=== PATIENT | male | born 1940 | race Caucasian/White ===

== ENCOUNTER 2018-08-19 00:11 | Observation (INO) | payer OTHER ==
[2018-08-19] VITALS (11 sets, daily range): BP systolic 155–178; BP diastolic 74–104
[~2018-08-19] VITALS: Ht 182.9 cm; Wt 99.8 kg
[2018-08-19] MEDS ORDERED: METF10007 PO (00:20)
[2018-08-19] MEDS ORDERED: DILT180C64 PO (00:20)
[2018-08-19] MEDS ORDERED: PANT40TA5 PO (00:20)
[2018-08-19] MEDS ORDERED: GABA600T2 PO (00:20)
--- NOTE | 2018-08-19 00:28 | ER.PDOC ---
General Chief Complaint: Stroke Symptoms Stated Complaint: LEFT ARM, LEFT LEG WEAKNESS Time seen by MD: 00:20 Source: patient, EMS Exam Limitations: no limitations History of Present Illness Initial Comments Pt states that about 10:30 last night, he was reading and while trying to hold an object, he noticed that his left upper extremity was not responding, then he tried to get up and his leg did not respond either Timing/Duration: 1-3 hours Severity: moderate New Weakness: LUE, LLE Decreased Ability to Stand: weak Usually: orientedx3 Allergies: Coded Allergies: No Known Allergies (Unverified , 08/19/18) Home Meds Reported Medications Diltiazem Hcl (CARTIA XT) 180 Mg Cap.er.24h, 180 MG PO BID 08/19/18 Pantoprazole Sodium (PANTOPRAZOLE SODIUM) 40 Mg Tablet.dr, 1 TAB PO BID, #30 TAB 3 Refills 08/19/18 Gabapentin (GABAPENTIN) 600 Mg Tablet, 1 TAB PO TID, #90 TAB 3 Refills 08/19/18 Metformin Hcl (METFORMIN HCL) 1,000 Mg Tablet, 1 TAB PO BID, #60 TAB 5 Refills 08/19/18 Review of Systems Constitutional: no symptoms reported Eyes: no symptoms reported Ears, Nose, Mouth, Throat: no symptoms reported Respiratory: no symptoms reported Cardiovascular: no symptoms reported Gastrointestinal: no symptoms reported Genitourinary: no symptoms reported Musculoskeletal: no symptoms reported Skin: no symptoms reported Psychiatric/Neurological: see HPI Endocrine: no symptoms reported Hematologic/Lymphatic: no symptoms reported Physical Exam General Appearance: alert, no distress HEENT: no apparent trauma, EOM's intact, no nystagmus, PERRL, ENT inspection nml, pharynx nml, airway intact, oral exam nml Neuro/Psych: oriented x3, nml speech/cognition, nml mood/affect Cranial Nerves: nml as tested Cerebellar: nml as tested Peripheral Exam: motor nml, sensation nml, reflexes nml Neck: supple, non-tender, no carotid bruit Respiratory: no resp distress, breath sounds nml CVS: reg rate & rhythm, heart sounds nml Abdomen: non-tender, no organomegaly, no distention Skin: color nml, no rash, warm/dry Extremities: non-tender, nml ROM, no pedal edema Results/Orders Results/Orders Laboratory Tests Test 08/19/18 00:19 10/20/18 00:30 Urine Collection Type CCMS Urine Color STRAW (YELLOW) Urine Appearance CLEAR (CLEAR) Urine Bilirubin NEGATIVE MG/DL (NEGATIVE) Urine Ketones NEGATIVE (NEGATIVE) Urine Specific [place] 1.010 (1.005-1.035) Urine pH 7 (5.0-6.0) Urine Protein NEGATIVE (NEGATIVE) Urine Urobilinogen NORMAL (NEGATIVE) Urine Nitrate NEGATIVE (NEGATAIVE) Urine Leukocyte Esterase NEGATIVE (NEGATIVE) Urine Blood NEGATIVE (NEGATIVE) Urine Glucose NORMAL (NEGATIVE) White Blood Count 7.6 10^3/uL (4.5-11.0) Red Blood Count 5.14 10^6/uL (4.50-5.90) Hemoglobin 13.8 g/dL (13.9-16.3) Hematocrit 42.4 % (37.0-53.0) Mean Corpuscular Volume 82.5 fL (78-100) Mean Corpuscular Hemoglobin 26.8 pg (26-34) Mean Corpuscular Hemoglobin Concent 32.5 g/dL (33-37) Red Cell Distribution Width 15.5 % (11.5-14.5) Platelet Count 228 10^3/uL (150-400) Mean Platelet Volume 11.6 fL (7.8-11.0) Neutrophils (%) (Auto) 75.1 % (41.0-85.0) Lymphocytes (%) (Auto) 12.5 % (24.0-44.0) Monocytes (%) (Auto) 10.9 % (5.0-12.0) Neutrophils # (Auto) 5.7 10^3/uL (1.8-7.7) Lymphocytes # (Auto) 1.0 10^3/uL (1.0-4.8) Monocytes # (Auto) 0.8 10^3/uL (0.3-0.8) Absolute Immature Granulocyte (auto 0.02 10^3 u/L (0-2) Eosinophils % 0.7 % (0.0-5.0) Basophils % 0.5 % (0.0-0.2) Basophils # 0.0 10^3/uL (0.0-0.1) Eosinophil Count 0.1 10^3/uL (0.0-0.2) Prothrombin Time 9.8 SEC (9.8-11.9) Prothrombin Time INR (Non-Therap) 1.0 Activated Partial Thromboplast Time 25.9 SEC (24.67-30.72) Sodium Level 141 mmol/L (132-145) Potassium Level 3.9 mmol/L (3.6-5.2) Chloride Level 103.0 mmol/L (96-109) Carbon Dioxide Level 26.5 mmol/L (20.0-32) Anion Gap 15.4 Blood Urea Nitrogen 23 mg/dL (7-18) Creatinine 1.19 mg/dL (0.59-1.40) Estimated GFR () 71.9 (>/=60) BUN/Creatinine Ratio 19.0 Glucose Level 93 mg/dL (70-110) Calcium Level 9.5 mg/dL (8.4-10.5) Total Bilirubin 0.5 mg/dL (0.2-1.0) Aspartate Amino Transf (AST/SGOT) 20 U/L (0-35) Alanine Aminotransferase (ALT/SGPT) 22 U/L (12-78) Alkaline Phosphatase 76 U/L (50-136) Total Creatine Kinase 192 U/L (39-308) Creatine Kinase MB 3.5 ng/mL (0.5-3.6) Troponin I < 0.02 ng/mL (0.00-0.05) Total Protein 8.3 g/dL (6.4-8.2) Albumin 4.3 g/dL (3.4-5.0) Globulin 4.0 Percent Immature Gran (Cell Imm) 0.30 % (0.00-0.50) Departure Time of Disposition: 01:25 Disposition: 09 ADMITTED INPATIENT Impression: Primary Impression: Transient cerebral ischemia Condition: Stable Patient Instructions: Stroke Prevention, [id number], Stroke, [id number], Stroke, Therapy After, Adult Referrals: HUGO MOLINA PA-C (PCP) PRIMARY CARE PROVIDER Duration or Time Spent with Pa: ANGELITA GAONA MD Aug 19, 2018 00:28
[2018-08-19 00:41] LABS: BASOPHIL % 0.5 % (0.0-0.2); EOSINOPHIL # 0.1 10^3/uL (0.0-0.2); EOSINOPHIL % 0.7 % (0.0-5.0); HEMOGLOBIN 13.8 g/dL (13.9-16.3); LYMPHOCYTES % 12.5 % (24.0-44.0); MEAN CELL HGB 26.8 pg (26-34); MEAN CELL HGB CONCENTRATION 32.5 g/dL (33-37); MEAN CORP VOLUME 82.5 fL (78-100); MEAN PLATELET VOLUME 11.6 fL (7.8-11.0); MONOCYTES # 0.8 10^3/uL (0.3-0.8); MONOCYTES % 10.9 % (5.0-12.0); NEUTROPHIL # 5.7 10^3/uL (1.8-7.7); NEUTROPHILS % 75.1 % (41.0-85.0); RED CELL DISTRIBUTION WIDTH 15.5 % (11.5-14.5); WHITE BLOOD CELL 7.6 10^3/uL (4.5-11.0)
--- NOTE | 2018-08-19 01:00 | NUR ---
URINE PT VOICES NEED TO URINATE, REQUESTS TO STAND TO URINATE. SBA X1 PROVIDED. URINE OBTAINED AND SENT TO LAB ORDERED. PT PERFORMED HAND HYGIENE AT SINK. POSITIONED SELF IN BED. WARM BLANKET PROVIDED.
[2018-08-19 01:09] LABS: ALANINE AMINOTRANSFERASE(ML) 22 U/L (12-78); ALKALINE PHOSPHATASE 76 U/L (50-136); ASPARTATE AMINO TRANSFERASE 20 U/L (0-35); CALCIUM 9.5 mg/dL (8.4-10.5); CARBON DIOXIDE 26.5 mmol/L (20.0-32); GLUCOSE 93 mg/dL (70-110)
--- NOTE | 2018-08-19 01:10 | DIREP ---
PROCEDURE:CT HEAD WITHOUT CONTRAST TECHNIQUE:Axial cuts were obtained through the head, without intravenous contrast material. The images were viewed at brain and bone settings. COMPARISON:None. INDICATIONS:CVA FINDINGS: VENTRICLES:Moderate enlargement of the lateral ventricles is demonstrated most likely associated with cerebral volume loss. CEREBRUM:There is no evidence of intraparenchymal or extra-axial hemorrhage. Moderate involutional changes are noted as well as low-attenuation in the deep white matter of the right frontal lobe consistent with an old infarct. CEREBELLUM:Normal. BRAINSTEM:Normal. SKULL:Normal. SINUSES:Normal. OTHER:Negative. CONCLUSION: 1. No intracranial hemorrhage is demonstrated. No acute or subacute infarction is seen. 2. Old right frontal infarct. Dictated by: Jerson Tellez M.D. on 08/19/2018 at 01:07 AM
[2018-08-19 01:12] LABS: BILIRUBIN,URINE NEGATIVE (NEGATIVE); UROBILINOGEN,URINE NORMAL (NEGATIVE)
[2018-08-19 01:19] LABS: APPEARANCE,URINE CLEAR (CLEAR); UA COLOR STRAW (YELLOW)
--- NOTE | 2018-08-19 01:24 | NUR ---
DR ADAMS ON PHONE WITH EDP
--- NOTE | 2018-08-19 01:29 | PCM.EKG ---
[facility] Test Date: 2018-08-19 Test Time: 00:33:41 Pat Name: KENYA HICKMAN Department: Room: 338 Gender: M Medicine Teacher: CHANEL : 1940 Requested By: ANGELITA HUTCHINS Order Number: [id number] Reading MD: Angelita Hutchins Measurements Intervals [place] Rate: 75 P: 50 AR: 146 QRS: 30 QRSD: 74 T: 74 QT: 406 QTc: 453 Interpretive Statements Normal sinus rhythm Normal ECG No previous ECG available for comparison Electronically Signed On 08-20-2018 8:37:03 CDT by Angelita Hutchins Please click the below link to view image of tracing.
--- NOTE | 2018-08-19 02:08 | NUR ---
TRANSFER TO [facility] PT TO [facility] VIA W/C ACCCOMPANIED BY THIS NURSE. PT REMAINS ON ROOM AIR, NO SIGNS OF DISTRESS. VSS. DENIES PAIN, NUMBNESS, TINGLING. PT ABLE TO MOVE ALL EXTREMITIES EQUALLY, NO WEAKNESS OR DRIFT NOTED. NO FACIAL DROOP, VISION CHANGES. SPEECH INTACT, NO APHASIA NOTED. UPON ARRIVAL TO UNIT, PT TRANSFERRED SELF TO EDGE OF BED, GAIT STEADY. REPORT TO [facility]. [facility].
--- NOTE | 2018-08-19 06:31 | NUR ---
REPORT REPORT RECEIVED FROM DARA LUU ASSUMED CARE OF PT
--- NOTE | 2018-08-19 06:31 | NUR ---
report to paulo ponce
--- NOTE | 2018-08-19 10:58 | DIREP ---
PROCEDURE:CHEST 1 VIEW COMPARISON:[facility], CR, XRAY CHEST 2 VWS, 04/12/2016, 10:39 AM. INDICATIONS:CVA FINDINGS: LUNGS/PLEURA:No significant pulmonary parenchymal abnormalities. No effusions. VASCULATURE:Normal. Unremarkable pulmonary vasculature. CARDIAC:Normal. No cardiac silhouette abnormality or cardiomegaly. MEDIASTINUM:Normal. No visible mass or adenopathy. BONES:Normal. No fracture or visible bony lesion. OTHER:Negative. CONCLUSION:No acute cardiopulmonary abnormalities. Dictated by: Kevin Chi M.D. on 08/19/2018 at 10:56 AM
--- NOTE | 2018-08-19 13:08 | HPH ---
ADMIT DATE: 08/19/2018 PRIMARY CARE PROVIDER: JACLYN Vazquez at [place]. ADMITTING DIAGNOSES: Transient ischemic attack with hypertension, type 2 diabetes mellitus. CHIEF COMPLAINT: "Weakness to my left side." HISTORY OF PRESENT ILLNESS: The patient is a very pleasant 78-year-old gentleman who came into the ER with left-sided arm weakness and facial drooping. He definitely had stroke-like symptoms. However, it quickly resolved in the ER and by the time, the ER physician saw the patient and his symptoms actually resolved. Workup did not reveal any acute stroke and at that point, I was asked to put him in the hospital and watch him, but he denies any chest pains, no shortness of breath. This happened in late last night, but he checked himself in the ER shortly thereafter. He denies any dysuria, no abdominal pains, no melena, no hematochezia, no hematemesis, no hemoptysis, no night sweats. No trauma. No syncopal episodes. He states that his sugars have been good for his diabetes and that his blood pressure has been good too. PAST MEDICAL HISTORY: Significant for type 2 diabetes mellitus and hypertension. 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 He reports being hospitalized in [place] 9 months ago for his shingles; however, he developed some type of GI bleed and was placed on a PPI thereafter. He was told to avoid all NSAIDs at that time including aspirin. PAST SURGICAL HISTORY: He said he was scoped in [place] when he was hospitalized. ALLERGIES: No known drug allergies. SOCIAL HISTORY: He does not smoke. No illicit drugs, no alcohol reported. FAMILY HISTORY: Asked and noncontributory for this admission. MEDICATIONS: Medications, he is on, include diltiazem, Protonix, gabapentin, and metformin. PHYSICAL EXAMINATION: INITIAL VITAL SIGNS: When he came in, temperature is 98.4, pulse rate 88, respirations 20, blood pressure is 174/104, O2 sats of 96%. My physical exam is as follows: GENERAL: He is in no acute distress, awake and alert. HEENT: Oropharynx is clear. Tongue is midline. NECK: Supple, no JVD noted. CARDIOVASCULAR: S1, S2 audible. He had a slight 2/6 systolic murmur in the anterior chest. LUNGS: Relatively clear bilaterally. He is not tachypneic. ABDOMEN: Good bowel sounds, soft abdomen, no rebound, no guarding. EXTREMITIES: No petechia, no purpura. NEUROLOGIC: Neurological status is intact. He has good motor strength x 4. Good hand steam cleaner bilaterally. DTRs are normal. He is able to walk around without any problems. LABORATORY DATA: Labs were drawn. CBC had a white count of 7600, hemoglobin 13.8 and platelet count of 228. Coags were normal. Chemistry panel looked okay. Cardiac enzymes were negative x 1. UA was normal. IMAGING STUDIES: He had a chest x-ray that did not show any acute abnormalities. CT of the head without contrast showed he had an old right frontal infarct but nothing new. ASSESSMENT: We have this elderly gentleman with TIA symptoms resolved. I will go ahead and get an echo and carotid ultrasound on him and draw lipid panel and A1c in the morning. I am going to put him on some lisinopril to help with his blood pressure control and follow him clinically in the next 24-48 hours. Gabby Ye MD DR: MIGUEL/chante JOB# [id number]
[2018-08-19] MEDS: NEURONTIN PO SCH ×2 (15:44→20:23)
[2018-08-19] MEDS: GLUCOPHAGE PO SCH (17:59)
[2018-08-19] MEDS: PROTONIX PO SCH (20:22)
[2018-08-19] MEDS: CARDIZEM CD PO SCH (20:23)
--- NOTE | 2018-08-20 00:16 | DIREP ---
PROCEDURE:CAROTID ULTRASOUND COMPARISON:None. INDICATIONS:TIA, bruit TECHNIQUE:Sonographic evaluation of carotid and vertebral arteries was performed together with grayscale, color-flow, and spectral analysis. FINDINGS: RIGHT CCA:69.8 cm/s RIGHT ICA: PROX:42.68 cm/s MID:46.46 cm/s DIST:67.86 cm/s RIGHT ECA:104.37 cm/s RIGHT ICA/CC:0.97 RIGHT VERTEBRAL:51.38 cm/s IMAGES: Mild intimal thickening is noted within the common and internal carotid artery's. LEFT CCA:69.1 cm/s LEFT ICA: PROX:54.89 cm/s MID:48.76 cm/s DIST:74.16 cm/s LEFT ECA:93.92 cm/s LEFT ICA/CCA:1.1 LEFT VERTEBRAL:53.6 cm/s IMAGES:Mild atherosclerotic plaque formation is demonstrated at the origin of the internal carotid artery. Intimal thickening is noted within the common and internal carotid artery's. CONCLUSION: 1. No hemodynamically significant stenosis of the common or internal carotid arteries is seen. Diameter Stenosis (%)ICA Peak Systolic Velocity (cm/s)ICA/CCA RatioNormal<125<2.0<50<125<[id number] to near occlusion>230>4J Ultrasound Med 2005; 24:8785-5388 Dictated by: Jerson Tellez M.D. on 08/20/2018 at 00:12 AM
[2018-08-20 00:28] VITALS: BP 140/76
[2018-08-20 00:35] VITALS: BP 140/76
[2018-08-20 04:59] VITALS: BP 125/76
[2018-08-20 05:49] LABS: CALCIUM 8.9 mg/dL (8.4-10.5); CARBON DIOXIDE 26.3 mmol/L (20.0-32)
--- NOTE | 2018-08-20 06:33 | NUR ---
REPORT REPORT RECEIVED FROM MIREYA LUU ASSUMED CARE OF PT
[2018-08-20 08:00] VITALS: BP 125/80
[2018-08-20] MEDS: GLUCOPHAGE PO SCH (08:09)
[2018-08-20] MEDS: PROTONIX PO SCH (08:09)
[2018-08-20] MEDS: CARDIZEM CD PO SCH (08:09)
[2018-08-20] MEDS: NEURONTIN PO SCH (08:10)
[2018-08-20] MEDS ORDERED: ZESTRIL PO SCH (09:00)
--- NOTE | 2018-08-20 10:32 | PRM.PN ---
Subjective Subjective Date: Aug 20, 2018 Time: 10:15 Subjective Pt doing ok; no c/o; walking around some Patient History: Alzheimer's disease VTE VTE Risk Total Score: 1 VTE Risk Score VTE Risk: Score 0-1 = Low Risk (Aggressive mobilization; early ambulation; no VTE prophylaxis required) Score 2: Moderate Risk (Intermittent/Pneumatic Compression Device OR Lovenox/Heparin/Coumadin) Score 3-4: High Risk (Intermittent/Pneumatic Compression Device AND Lovenox/Heparin/Coumadin) Score > or =5: Highest Risk (Intermittent/Pneumatic Compression Device AND Lovenox/Heparin/Coumadin) Antico:Hep/LMWH/Coum/Xarelto: No Mechanical device ordered: No Review of Systems Constitutional: No: Fever, Chills, Sweats, Weakness Eyes: No: Pain, Vision change, Conjunctivae inflammation ENT: No: Ear pain, Ear discharge, Nose pain, Nose discharge Respiratory: No: Cough, Dry, Shortness of breath, SOB with excertion Cardiovascular: No: Chest Pain, Palpitations, Orthopnea, Paroxysmal Noc. Dyspnea Gastrointestinal: No: Nausea, Vomiting, Abdominal Pain Genitourinary: No Dysuria, No Frequency, No Incontinence, No Hematuria Musculoskeletal: No: neck pain, shoulder pain, arm pain, back pain Skin: No: Lesions, Jaundice, Bruising Neurological: No: Numbness, Confusion, Seizures Allergies: Coded Allergies: No Known Allergies (Unverified , 08/19/18) Scheduled Diltiazem Hcl (Cartia Xt), 180 MG PO BID, (Reported) Gabapentin (Gabapentin), 1 TAB PO TID, (Reported) Metformin Hcl (Metformin Hcl), 1 TAB PO BID, (Reported) Pantoprazole Sodium (Pantoprazole Sodium), 1 TAB PO BID, (Reported) Objective Vitals and I/O Vital Sign - Last 24 Hours 08/19/18 08/19/18 08/19/18 08/19/18 13:00 17:56 20:00 20:17 Temp 97.8 98.1 97.9 97.8 98.1 97.9 Pulse 73 75 76 65 Resp 18 18 16 18 B/P (MAP) 173/89 (117) 155/89 (111) 171/93 (119) Pulse Ox 98 97 92 98 O2 Delivery Room Air Room Air Room Air Room Air 08/19/18 08/19/18 08/20/18 08/20/18 20:23 21:46 00:28 00:35 Temp 97.9 97.9 Pulse 65 62 62 Resp 18 18 B/P (MAP) 171/93 140/76 (97) Pulse Ox 93 O2 Delivery Room Air Room Air 08/20/18 08/20/18 08/20/18 08/20/18 04:59 08:00 08:09 08:09 Temp 98.0 97.4 98.0 97.4 Pulse 67 56 67 Resp 18 20 B/P (MAP) 125/76 (92) 125/80 (95) 125/76 125/76 Pulse Ox 95 93 O2 Delivery Room Air Room Air Intake and Output 08/19/18 08/19/18 08/20/18 15:00 23:00 07:00 Intake Total 436 ml 560 ml 200 ml Balance 436 ml 560 ml 200 ml General: Alert, Oriented X3, Cooperative, No acute distress HEENT: Atraumatic, PERRLA, EOMI Neck: Supple, No JVD, No thyromegaly Lungs: Clear to auscultation, Normal air movement Heart: Normal S1, Normal S2 Abdomen: Normal bowel sounds, Soft Extremities: No clubbing, No cyanosis Skin: No rashes, No breakdown Neuro: Normal gait, Normal speech Psych/Mental Status: Mental status NL, Mood NL Course Sepsis Screening Results: Posi: NEGATIVE Sepsis Qualifier/Stage: NO DEFINITE RISK Vitals & review Data Vital Sign - Last 24 Hours 08/19/18 08/19/18 08/19/18 08/19/18 13:00 17:56 20:00 20:17 Temp 97.8 98.1 97.9 97.8 98.1 97.9 Pulse 73 75 76 65 Resp 18 18 16 18 B/P (MAP) 173/89 (117) 155/89 (111) 171/93 (119) Pulse Ox 98 97 92 98 O2 Delivery Room Air Room Air Room Air Room Air 08/19/18 08/19/18 08/20/18 08/20/18 20:23 21:46 00:28 00:35 Temp 97.9 97.9 Pulse 65 62 62 Resp 18 18 B/P (MAP) 171/93 140/76 (97) Pulse Ox 93 O2 Delivery Room Air Room Air 08/20/18 08/20/18 08/20/18 08/20/18 04:59 08:00 08:09 08:09 Temp 98.0 97.4 98.0 97.4 Pulse 67 56 67 Resp 18 20 B/P (MAP) 125/76 (92) 125/80 (95) 125/76 125/76 Pulse Ox 95 93 O2 Delivery Room Air Room Air Intake and Output 08/19/18 08/19/18 08/20/18 15:00 23:00 07:00 Intake Total 436 ml 560 ml 200 ml Balance 436 ml 560 ml 200 ml Laboratory Tests Test 08/19/18 00:19 08/19/18 00:30 08/20/18 05:16 Urine Collection Type CCMS Urine Color STRAW Urine Appearance CLEAR Urine Bilirubin NEGATIVE MG/DL Urine Ketones NEGATIVE Urine Specific [place] 1.010 Urine pH 7 Urine Protein NEGATIVE Urine Urobilinogen NORMAL Urine Nitrate NEGATIVE Urine Leukocyte Esterase NEGATIVE Urine Blood NEGATIVE Urine Glucose NORMAL White Blood Count 7.6 10^3/uL Red Blood Count 5.14 10^6/uL Hemoglobin 13.8 g/dL Hematocrit 42.4 % Mean Corpuscular Volume 82.5 fL Mean Corpuscular Hemoglobin 26.8 pg Mean Corpuscular Hemoglobin Concent 32.5 g/dL Red Cell Distribution Width 15.5 % Platelet Count 228 10^3/uL Mean Platelet Volume 11.6 fL Neutrophils (%) (Auto) 75.1 % Lymphocytes (%) (Auto) 12.5 % Monocytes (%) (Auto) 10.9 % Neutrophils # (Auto) 5.7 10^3/uL Lymphocytes # (Auto) 1.0 10^3/uL Monocytes # (Auto) 0.8 10^3/uL Absolute Immature Granulocyte (auto 0.02 10^3 u/L Eosinophils % 0.7 % Basophils % 0.5 % Basophils # 0.0 10^3/uL Eosinophil Count 0.1 10^3/uL Prothrombin Time 9.8 SEC Prothrombin Time INR (Non-Therap) 1.0 Activated Partial Thromboplast Time 25.9 SEC Sodium Level 141 mmol/L 142 mmol/L Potassium Level 3.9 mmol/L 3.7 mmol/L Chloride Level 103.0 mmol/L 107.0 mmol/L Carbon Dioxide Level 26.5 mmol/L 26.3 mmol/L Anion Gap 15.4 12.4 Blood Urea Nitrogen 23 mg/dL 20 mg/dL Creatinine 1.19 mg/dL 1.08 mg/dL Estimated GFR () 71.9 80.4 BUN/Creatinine Ratio 19.0 18.0 Glucose Level 93 mg/dL 108 mg/dL Calcium Level 9.5 mg/dL 8.9 mg/dL Total Bilirubin 0.5 mg/dL Aspartate Amino Transf (AST/SGOT) 20 U/L Alanine Aminotransferase (ALT/SGPT) 22 U/L Alkaline Phosphatase 76 U/L Total Creatine Kinase 192 U/L Creatine Kinase MB 3.5 ng/mL Troponin I < 0.02 ng/mL Total Protein 8.3 g/dL Albumin 4.3 g/dL Globulin 4.0 Percent Immature Gran (Cell Imm) 0.30 % Hemoglobin A1c 5.9 % Triglycerides Level 61 mg/dL Cholesterol Level 163 mg/dL LDL Cholesterol, Calculated 93.8 VLDL Cholesterol 12.2 HDL Cholesterol 57 mg/dL Cholesterol Ratio (LDL/HDL) 2.629652 Current Medications Medications (Trade) Dose Ordered Sig/Dominic PRN Reason Start Time Stop Time Status Last Admin Diltiazem HCl (Cardizem Cd) 180 mg BID 08/19/18 21:00 09/18/18 20:59 08/20/18 08:09 Gabapentin (Neurontin) 600 mg TID 08/19/18 15:00 09/18/18 14:59 08/20/18 08:10 Lisinopril (Zestril) 20 mg DAILY 08/20/18 09:00 09/19/18 08:59 08/20/18 08:09 Metformin HCl (Glucophage) 1,000 mg 08/19/18 17:00 09/18/18 16:59 08/20/18 08:09 Pantoprazole Sodium (Protonix) 40 mg BID 08/19/18 21:00 09/18/18 20:59 08/20/18 08:09 Assessment/Plan Assessment/Plan Assessment/Plan 78 yo male with TIA, HTN - on ACEI and statin - carotid U/S with mild plaque dz - ECHO pending - BP improved - follow clinically DEE ADAMS MD Aug 20, 2018 10:32
[2018-08-20 12:50] VITALS: BP 139/79
[2018-08-20] MEDS ORDERED: ATOR20TA PO (13:50)
[2018-08-20] MEDS ORDERED: LISI-410 PO (13:51)
[2018-08-20 14:20] VITALS: BP 139/79
--- NOTE | 2018-08-20 14:20 | NUR ---
D/C D/C INSTRUCTIONS GIVEN TO PT. VERBALIZED UNDERSTANDING. NO S/S OF DISTRESS. OFF OF FLOOR VIA W/C, BUCKLED INTO CAR. RELINQUISHED CARE OF PT
[2018-08-20] MEDS ORDERED: LIPITOR PO SCH (21:00)
--- NOTE | 2018-08-20 23:27 | ECHO ---
DATE OF SERVICE: 08/19/2018 INDICATIONS: A 78-year-old, TIA, heart murmur. Assess for valvular abnormality, assess for any LV thrombus or left atrial thrombus. Mitral valve shows mitral annular calcification and mitral regurgitation, 2.6 meters velocity, grade 1 diastolic dysfunction. Aorta is normal with mild gradient, adequate aortic valve opening of 3.95 cm and mild tricuspid regurgitation and right ventricular systolic pressure of 16 mm. Right ventricle is normal. Right atrium is mildly enlarged, on 4-chamber view is about 5.6 cm, but it is over estimated and left atrium is top normal size, left atrium is about 5.4 cm in 4-chamber longitudinal view, which is consistent with mild to moderate left atrial enlargement. Left ventricle is a banana shaped ventricle, which appears to be overestimated on M-MODE, but actually is normal in size with definite concentric left ventricular hypertrophy, septum being much thicker than the posterior wall, ejection fraction is around 50% and increase end diastolic volume to 130 mL and pericardium is normal, no thrombus in any of the cardiac chambers. Laxmichand MD Jackie DR: JAELYN/chante JOB# [id number]
--- NOTE | 2018-08-21 00:49 | DSH ---
DATE OF DISCHARGE: 08/20/2018 ADMITTING DIAGNOSIS: Transient ischemic attack with hypertension. DISCHARGE DIAGNOSIS: Transient ischemic attack resolved with hypertension. HOSPITAL COURSE: The patient is a 78-year-old gentleman who came in with left-sided weakness and facial droop. When he was seen in the ER, his symptoms actually resolved. His blood pressure was elevated and I put him in the hospital. Labs looked okay. CT of the head showed an old right frontal infarct. I did carotid ultrasound that did show some plaque disease in the carotid artery, but nothing significant. An echo was done for, which I do not have the results yet. He is not in AFib when he came in. I started him on 20 mg of lisinopril since he does have underlying diabetes as well and his blood pressures are improved today from yesterday. He is feeling a lot better. His CTA symptoms resolved. His LDL was between 90 and 100, his A1c was 5.9. So currently, he feels fine and wants to go home. I have asked him to stay on a cardiac diet and continue his home medications. I am adding lisinopril 20 mg a day and Lipitor 20 mg at night. He is to follow up with his primary care provider, Srinivas Vázquez in [place] next week, and once he follows up with Srinivas Vázquez, then at that point, I will leave it up to his primary care provider to look up the echo results that were done here as well as placing him on any kind of anticoagulation. The reason why I did not start him on an aspirin is because he was hospitalized within the past year in [place] for shingles, but however, he developed a GI bleed from taking too many aspirins and NSAIDs and he was told not to take aspirin or NSAIDs again, so at this point, I will leave him off any kind of blood thinning agents, and NSAIDs and let his primary care provider follow up with him. Gabby Ye MD DR: MIGUEL/chante JOB# [id number]
== END 2018-08-20 14:30 | disposition home or self-care (01) ==
LOC: EDBD 00:11 → ER 00:11 → MS 01:30
PROVIDERS: ADMIT Pediatrics; ATTEND Pediatrics
DX: G45.9 Transient cerebral ischemic attack, unspecified (principal); I10 Essential (primary) hypertension; E11.9 Type 2 diabetes mellitus without complications; Z79.899 Other long term (current) drug therapy
CPT/HCPCS: 36415 ×2; 70450; 71045; 80048; 80053; 80061; 81002; 82550; 82553; 82948 ×4; 83036; 84484; 85025; 85610; 85730; 93005; 93307; 93880; 99285; G0378 ×37; J3490 ×2